=== PATIENT | female | born 1990 | race American Indian/Alaskan Native ===

== ENCOUNTER 2016-10-08 00:40 | Emergency (ER) | payer MEDICAID ==
[2016-10-08 02:30] VITALS: BP 129/87
[2016-10-08 03:03] LABS: Basophils % (Auto) 0.6 % (0.0-1.8); Eosinophils % (Auto) 1.2 % (0.0-4.3); Hematocrit 39.7 % (30.3-42.9); Hemoglobin 13.1 gm/dl (10.1-14.3); Mean Corpuscular HGB Conc 33 % (30-34); Mean Corpuscular Hemoglobin 26 pg (28-32); Mean Corpuscular Volume 80 fl (79-97); Platelet Count 267 K/mm3 (140-440); Red Blood Count 4.99 M/mm3 (3.65-5.03); Red Cell Distribution Width 13.4 % (13.2-15.2); White Blood Count 7.9 K/mm3 (4.5-11.0)
[2016-10-08 03:15] LABS: Alanine Aminotransferase 8 units/L (7-56); Albumin 3.8 g/dL (3.9-5); Albumin/Globulin Ratio 1.1 %; Alkaline Phosphatase 44 units/L (35-129); Anion Gap 18 mmol/L; Bilirubin,Total 0.3 mg/dL (0.1-1.2); Blood Urea Nitrogen 6 mg/dL (7-17); Calcium 9.1 mg/dL (8.4-10.2); Carbon Dioxide 23 mmol/L (22-30); Chloride 99.6 mmol/L (98-107); Glucose 82 mg/dL (65-100); Lipase 23 units/L (13-60); Potassium 3.8 mmol/L (3.6-5.0); Sodium 137 mmol/L (137-145); Total Protein 7.4 g/dL (6.3-8.2)
[2016-10-08 03:34] LABS: Bilirubin,Urine NEG (Negative); Blood,Urine NEG (Negative); Ketones,Urine NEG (Negative); Leukocyte Esterase,Urine NEG (Negative); Mucus,Urine 2+ /HPF; Nitrite,Urine NEG (Negative); Protein,Urine <15 mg/dL mg/dL (Negative); Urobilinogen,Urine < 2.0 mg/dL (<2.0)
--- NOTE | 2016-10-09 15:00 | ED Elopement Review ---
ED Pt Elopement review - Results review Lab results: Laboratory Tests 10/08/16 10/08/16 10/08/16 02:34 02:34 02:38 WBC 7.9 RBC 4.99 Hgb 13.1 Hct 39.7 MCV 80 MCH 26 L MCHC 33 RDW 13.4 Plt Count 267 Lymph % (Auto) 21.9 [place] % (Auto) 5.7 Eos % (Auto) 1.2 Baso % (Auto) 0.6 Lymph # 1.7 [place] # 0.4 Eos # 0.1 Baso # 0.0 Seg Neutrophils % 70.6 H Seg Neutrophils # 5.6 Sodium 137 Potassium 3.8 Chloride 99.6 Carbon Dioxide 23 Anion Gap 18 BUN 6 L Creatinine 0.4 L Estimated GFR > 60 BUN/Creatinine Ratio 15.00 Glucose 82 Calcium 9.1 Total Bilirubin 0.3 AST 10 ALT 8 Alkaline Phosphatase 44 Total Protein 7.4 Albumin 3.8 L Albumin/Globulin Ratio 1.1 Lipase 23 HCG, Quant [id number] H Urine Color Urine Turbidity Urine pH Ur Specific [place] Urine Protein Urine Glucose (UA) Urine Ketones Urine Blood Urine Nitrite Urine Bilirubin Urine Urobilinogen Ur Leukocyte Esterase Urine WBC (Auto) Urine RBC (Auto) U Epithel Cells (Auto) Urine Mucus 10/08/16 02:59 WBC RBC Hgb Hct MCV MCH MCHC RDW Plt Count Lymph % (Auto) [place] % (Auto) Eos % (Auto) Baso % (Auto) Lymph # [place] # Eos # Baso # Seg Neutrophils % Seg Neutrophils # Sodium Potassium Chloride Carbon Dioxide Anion Gap BUN Creatinine Estimated GFR BUN/Creatinine Ratio Glucose Calcium Total Bilirubin AST ALT Alkaline Phosphatase Total Protein Albumin Albumin/Globulin Ratio Lipase HCG, Quant Urine Color Yellow Urine Turbidity Cloudy Urine pH 7.0 Ur Specific [place] 1.017 Urine Protein <15 mg/dl Urine Glucose (UA) Neg Urine Ketones Neg Urine Blood Neg Urine Nitrite Neg Urine Bilirubin Neg Urine Urobilinogen < 2.0 Ur Leukocyte Esterase Neg Urine WBC (Auto) 4.0 Urine RBC (Auto) 4.0 U Epithel Cells (Auto) 4.0 Urine Mucus 2+ - Call Back decision Pt Call Back Decision: No action required
== END 2016-10-08 03:15 | disposition left against medical advice (07) ==
LOC: ED 00:40
DX: O21.9 Vomiting of pregnancy, unspecified (principal); R10.9 Unspecified abdominal pain; Z3A.10 10 weeks gestation of pregnancy; Z53.21 Procedure and treatment not carried out due to patient leaving prior to being seen by health care provider
CPT/HCPCS: 36415; 80053; 81001; 83690; 84702; 85025

== ENCOUNTER 2017-05-03 22:51 | Outpatient (CLI) | payer MEDICAID ==
[2017-05-03 23:13] VITALS: BP 120/72
== END 2017-05-04 01:23 | disposition home or self-care (01) ==
LOC: TRG 22:51
PROVIDERS: ATTEND Obstetrics & Gynecology
DX: O62.9 Abnormality of forces of labor, unspecified (principal); Z3A.39 39 weeks gestation of pregnancy